=== PATIENT | male | born 1940 | race Hispanic/Latino ===

== ENCOUNTER 2019-03-07 15:08 | Emergency (ER) | payer MEDICARE ==
[2019-03-07 15:29] VITALS: BMI 24.0
[2019-03-07 15:39] VITALS: O2SAT 97
[2019-03-07] MEDS ORDERED: Lidocaine 1%/Epinephrine 1:100000 30 ml vial IJ STA (15:49)
--- NOTE | 2019-03-07 16:58 | CT ---
Date of service: 03/07/2019 PROCEDURE: CT HEAD WITHOUT CONTRAST. HISTORY: s/p mechanical fall - r/o ICH and fx COMPARISON: None available. TECHNIQUE: Axial computed tomography images were obtained through the head/brain without intravenous contrast. Radiation dose: Total exam DLP = 850.2 mGy-cm. This CT exam was performed using one or more of the following dose reduction techniques: Automated exposure control, adjustment of the mA and/or kV according to patient size, and/or use of iterative reconstruction technique. FINDINGS: HEMORRHAGE: No intracranial hemorrhage. BRAIN: No mass effect or edema. Atrophy. Chronic microvascular ischemic changes. 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 VENTRICLES: Unremarkable. No hydrocephalus. CALVARIUM: Unremarkable. PARANASAL SINUSES: Unremarkable as visualized. No significant inflammatory changes. MASTOID AIR CELLS: Unremarkable as visualized. No inflammatory changes. OTHER FINDINGS: None. IMPRESSION: No acute intracranial pathology or hemorrhage. Age-related changes.
[2019-03-07 17:34] VITALS: BP 133/56; PULSE 59; RESP 17; TEMP 97.9
--- NOTE | 2019-03-07 18:46 | ED PDOC ---
Arrival/HPI - General Chief Complaint: Trauma Time Seen by Provider: 03/07/19 15:13 Historian: Patient, Other (son) - History of Present Illness Narrative History of Present Illness (Text): 03/07/19 18:44 A 79 year old male presents to the ED accompanied by son s/p fall. Patient reports he lost his balance, fell and struck his head. Patient denies any loss of consciousness, nausea, or vomiting. Patient also denies any symptoms before the fall. Time/Duration: Prior to Arrival Symptom Onset: Sudden Symptom Course: Unchanged Activities at Onset: Light Context: Home Past Medical History - Provider Review Nursing Documentation Reviewed: Yes - Cardiac Hx Hypertension: Yes - Pulmonary Hx Respiratory Disorders: No - Neurological HX Cerebrovascular Accident: Yes (x2 2013) Hx Dementia: Yes - HEENT Hx HEENT Disorder: Yes Hx Cataracts: Yes - Renal Hx Renal Disorder: No - Endocrine/Metabolic Hx Endocrine Disorders: No - Hematological/Oncological Hx Blood Disorders: No - Integumentary Hx Dermatological Disorder: No - Musculoskeletal/Rheumatological Hx Musculoskeletal Disorders: No - Gastrointestinal Hx Gastrointestinal Disorders: No - Genitourinary/Gynecological Hx Genitourinary Disorders: Yes - Psychiatric Hx Psychophysiologic Disorder: No Hx Substance Use: No Family/Social History - Physician Review Nursing Documentation Reviewed: Yes Family/Social History: No Known Family HX Smoking Status: Former Smoker Hx Alcohol Use: No Hx Substance Use: No Allergies/Home Meds Allergies/Adverse Reactions: Allergies No Known Allergies Allergy (Verified 03/07/19 15:29) Home Medications: Home Meds Medication Instructions Recorded Confirmed Clopidogrel [Plavix] 75 mg PO DAILY 03/07/19 03/07/19 Escitalopram [Lexapro] 20 mg PO DAILY 03/07/19 03/07/19 Lisinopril [Prinivil] 15 mg PO DAILY 03/07/19 03/07/19 Memantine [Namenda] 5 mg PO DAILY 03/07/19 03/07/19 Rosuvastatin Calcium [Crestor] 10 mg PO DAILY 03/07/19 03/07/19 Tamsulosin HCl 0.4 mg PO DAILY 03/07/19 03/07/19 amLODIPine [Norvasc] 5 mg PO DAILY 03/07/19 03/07/19 Review of Systems - Physician Review All systems were reviewed & negative as marked: Yes - Review of Systems Gastrointestinal: absent: Nausea, Vomiting Neurological: absent: Headache, Dizziness Physical Exam Vital Signs Reviewed: Yes Vital Signs Temp Pulse Resp BP Pulse Ox 03/07/19 17:32 97.9 F 59 L 17 133/56 L 97 03/07/19 15:39 98.4 F 51 L 16 118/65 97 Temperature: Afebrile Blood Pressure: Normal Pulse: Bradycardic Respiratory Rate: Normal Appearance: Positive for: Well-Appearing, Non-Toxic, Comfortable - Systems Exam Head: Present: Laceration (1.5 cm slightly irregular laceration + active bleeding on right occipital region.) Pupils: Present: PERRL Extroacular Muscles: Present: EOMI Conjunctiva: Present: Normal Neck: Present: Normal Range of Motion Respiratory/Chest: Present: Clear to Auscultation, Good Air Exchange. No: Respiratory Distress, Accessory Muscle Use Cardiovascular: Present: Regular Rate and Rhythm, Normal S1, S2. No: Murmurs Psychiatric: Present: Alert Medical Decision Making ED Course and Treatment: 03/07/19 18:51 Impression: A 79 year old male who presents to the ED status post fall. Plan: -- Laceration repair with lidocaine 1% and Epi -- Reassess and disposition Progress Notes: Patient will follow up with PCP in 8-10 days for staple removal. Head injury instructions were given to patient. - RAD Interpretation Radiology Orders: 03/07/19 15:49 HEAD W/O CONTRAST [CT] Stat - Medication Orders Current Medication Orders: Discontinued Medications Lidocaine/Epinephrine (Lidocaine 1%/Epinephrine 1:[id number] 30 Ml) 10 ml IJ STAT STA Stop: 03/07/19 15:50 - Procedure PROCEDURE NOTE (Text): 03/07/19 18:54 PROCEDURE: LACERATION REPAIR Performed by the emergency provider Location: right occipital region. Length: 1.5 cm Description: clean wound edges, no foreign bodies Distal CMS: Normal. No deficits. Neurovascularly intact. Anesthesia: Lidocaine 1% with Epi. Preparation: The wound was cleaned with NS and [place]. The area was prepped and draped in the usual sterile fashion. Exploration: The wound was explored and no foreign bodies were found. Procedure: The wound was closed with 5 soha. There was good approximation. In total, 5 were used. Post-Procedure: Good closure and hemostasis. The patient tolerated the procedure well and there were no complications. CSM remains intact. Post procedure dressing applied. - Scribe Statement The provider has reviewed the documentation as recorded by the Aditie Dima Mayen Provider Scribe Attestation: All medical record entries made by the Scribe were at my direction and personally dictated by me. I have reviewed the chart and agree that the record accurately reflects my personal performance of the history, physical exam, medical decision making, and the department course for this patient. I have also personally directed, reviewed, and agree with the discharge instructions and disposition. Disposition/Present on Arrival - Present on Arrival Any Indicators Present on Arrival: No History of DVT/PE: No History of Uncontrolled Diabetes: No Urinary Catheter: No History of Decub. Ulcer: No History Surgical Site Infection Following: None - Disposition Have Diagnosis and Disposition been Completed?: Yes Diagnosis: Scalp laceration Disposition: HOME/ ROUTINE Disposition Time: 16:55 Condition: IMPROVED Discharge Instructions (ExitCare): Laceration Repair With [place] [facility] (DC), Minor Head Injury (DC) Additional Instructions: ANETA PRESTON, thank you for letting us take care of you today. The emergency medical care you received today was directed at your acute symptoms. If you were prescribed any medication, please fill it and take as directed. It may take several days for your symptoms to resolve. Return to the Emergency Department if your symptoms worsen, do not improve, or if you have any other problems. Please contact your doctor or call one of the physicians/clinics you have been referred to that are listed on the Patient Visit Information form that is included in your discharge packet. Bring any paperwork you were given at discharge with you along with any medications you are taking to your follow up visit. Our treatment cannot replace ongoing medical care by a primary care provider outside of the emergency department. Thank you for allowing the [facility] team to be part of your care today. Follow up with your primary care doctor in 8-10 days for staple removal. Return to the emergency room if you have any concerns. Referrals: Trinean Joseph Reshruthi, [Non-Staff] - Follow up with primary Forms: [employer] ([place])
== END 2019-03-07 17:31 | disposition home or self-care (01) ==
LOC: EDBD → MERGE 15:08 → ED 15:08
DX: S01.01XA Laceration without foreign body of scalp, initial encounter (principal); W19.XXXA Unspecified fall, initial encounter